=== PATIENT | female | born 1965 | race Caucasian/White ===

== ENCOUNTER → 2018-06-22 | Outpatient (CLI) | payer OTHER ==
[~2018-06-22] MED LIST: CALC300T5 PO; CHOL200024 PO; EXEM25TA2 PO; GLUC1TAB55 PO; KRIL1CAP19 PO; NAPR220C2 PO; SERT100T5 PO; UBID100C24 PO; [UNRECOGNIZED DRUG - CODE] PO
[2018-06-22 14:06] LABS: BASOPHILS # (AUTO) 0.04 x10^3/uL (0-0.1); BASOPHILS % (AUTO) 1 % (0-1); EOSINOPHILS # (AUTO) 0.08 x10^3/uL (0-0.4); EOSINOPHILS % (AUTO) 2 % (1-7); LYMPHOCYTES # (AUTO) 1.59 x10^3/uL (1-3.4); LYMPHOCYTES % (AUTO) 36 % (22-44); MD NO; MEAN CORPUSCULAR HEMOGLOBIN 30.2 pg (27.0-34.8); MEAN CORPUSCULAR HGB CONC 33.7 g/dL (32.4-35.8); MEAN CORPUSCULAR VOLUME 89.6 fL (80-100); MEAN PLATELET VOLUME 7.5 fL (7.4-10.4); MONOCYTES # (AUTO) 0.28 x10^3/uL (0.2-0.8); MONOCYTES % (AUTO) 6 % (2-9); NEUTROPHILS % (AUTO) 55 % (42-75); PLATELET COUNT 331 x10^3/uL (130-400); RED BLOOD COUNT 4.63 x10^6/uL (3.82-5.3); RED CELL DISTRIBUTION WIDTH 14.1 % (9.6-15.2)
[2018-06-22 14:11] LABS: INTERNATIONAL NORMALIZED RATIO 1.03 (0.93-1.1); PROTHROMBIN TIME 10.6 Seconds (9.6-11.5)
[2018-06-22 14:13] LABS: ALANINE AMINOTRANSFERASE 28 U/L (12-78); ALBUMIN 4.4 g/dL (3.4-5.0); ANION GAP 9 mmol/L (5-15); CALCIUM 9.4 mg/dL (8.5-10.1); CHLORIDE 105 mmol/L (98-107); CREATININE 0.76 mg/dL (0.55-1.02)
[2018-06-22 14:15] LABS: ALKALINE PHOSPHATASE 54 U/L (45-117); BILIRUBIN,TOTAL 0.4 mg/dL (0.2-1.0); TOTAL PROTEIN 7.7 g/dL (6.4-8.2)
== END | disposition home or self-care (01) ==
LOC: STAR 13:07
PROVIDERS: ATTEND Specialist
DX: Z01.818 Encounter for other preprocedural examination (principal); N95.1 Menopausal and female climacteric states
CPT/HCPCS: 36415; 71046; 80053; 85025; 85610; 85730; 86304; 93005

== ENCOUNTER 2018-07-03 13:00 | Day surgery (SDC) | payer OTHER ==
[~2018-07-03] VITALS: Ht 160 cm; Wt 76.1 kg
[2018-07-03] MEDS ORDERED: LACTATED RINGERS 1,000 ML IV SCH (13:38)
[2018-07-03 14:11] VITALS: BP 137/83
[2018-07-03] MEDS ORDERED: HEPARIN 1,000 UNITS/ML, 10ML ONE (15:44)
[2018-07-03] MEDS ORDERED: INDOCYANINE GREEN 25 MG VIAL ONE (15:44)
[2018-07-03] MEDS ORDERED: BUPIVACAINE/PF-EPI 0.25% 1:200K ONE (15:44)
[2018-07-03] MEDS ORDERED: MIDAZOLAM 1 MG/ML, 2ML ONE (15:51)
[2018-07-03] MEDS ORDERED: FENTANYL PF 250 MCG/5ML ONE (15:51)
[2018-07-03] MEDS ORDERED: SUCCINYLCHOLINE 20 MG/ML, 10ML ONE (16:01)
[2018-07-03] MEDS ORDERED: CEFAZOLIN 1,000 MG ONE (16:01)
[2018-07-03] MEDS ORDERED: ROCURONIUM 10 MG/ML,10ML ONE (16:01)
[2018-07-03] MEDS ORDERED: ONDANSETRON 2MG/ML, 2ML ONE (16:01)
[2018-07-03] MEDS ORDERED: PROPOFOL 10 MG/ML, 50ML ONE (16:01)
[2018-07-03] MEDS ORDERED: GLYCOPYRROLATE 0.2MG/1ML, 5ML ONE (16:01)
[2018-07-03] MEDS ORDERED: PROPOFOL 10 MG/ML, 20ML ONE (16:01)
[2018-07-03] MEDS ORDERED: DEXAMETHASONE 4 MG/ML, 1ML ONE (16:01)
[2018-07-03] MEDS ORDERED: ACETAMINOPHEN 325 MG TABLET PO PRN (17:00)
[2018-07-03] MEDS ORDERED: OXYcodone 5 MG/5 ML ORAL.SOL UDC PO PRN (17:00)
[2018-07-03] MEDS ORDERED: ONDANSETRON ODT 8 MG PO PRN (17:00)
[2018-07-03] MEDS ORDERED: EPHEDRINE 50 MG/ML, 1ML IM PRN (17:00)
[2018-07-03] MEDS ORDERED: PROMETHAZINE 25 MG SUPP PR PRN (17:00)
[2018-07-03] MEDS ORDERED: ONDANSETRON 2MG/ML, 2ML IV PRN (17:00)
[2018-07-03] MEDS ORDERED: PROMETHAZINE 25 MG/ML, 1ML IV PRN (17:00)
[2018-07-03] MEDS ORDERED: LABETALOL 5MG/ML, 20ML IV PRN (17:00)
[2018-07-03] MEDS ORDERED: DIPHENHYDRAMINE 50 MG/ML, 1ML IVPush PRN (17:00)
[2018-07-03] MEDS ORDERED: MIDAZOLAM 1 MG/ML, 2ML IV PRN (17:00)
[2018-07-03] MEDS ORDERED: PROMETHAZINE 12.5 MG SUPP PR PRN (17:00)
[2018-07-03] MEDS ORDERED: MEPERIDINE/PF 25MG/0.5ML IVPush PRN (17:00)
[2018-07-03] MEDS ORDERED: MORPHINE SULFATE 4 MG/ML, 1ML IVPush PRN (17:00)
[2018-07-03] MEDS ORDERED: EPHEDRINE 50 MG/ML, 1ML IVPush PRN (17:00)
[2018-07-03] MEDS ORDERED: ACETAMINOPHEN 650 MG/20.3 ML UDC ONE (18:03)
[2018-07-03] MEDS ORDERED: OXYcodone 5 MG/5 ML ORAL.SOL UDC ONE (18:03)
[2018-07-03] MEDS ORDERED: FENTANYL PF 100 MCG/2ML ONE (18:15)
[2018-07-03] MEDS: FENTANYL PF 100 MCG/2ML IV PRN ×2 (18:15→18:30)
[2018-07-03] MEDS ORDERED: MORPHINE SULFATE 4 MG/ML, 1ML IV PRN (20:00)
[2018-07-03] MEDS ORDERED: ONDANSETRON 2MG/ML, 2ML IVPush PRN (20:00)
[2018-07-03] MEDS ORDERED: OXYcodone/APAP 7.5/325MG TABLET PO PRN (20:00)
[2018-07-03 20:28] VITALS: BP 144/94
== END 2018-07-03 21:20 | disposition home or self-care (01) ==
LOC: OUT 13:00 → 4NOR 19:20 → OUT 21:20
PROVIDERS: ATTEND Specialist
DX: D25.9 Leiomyoma of uterus, unspecified (principal); N90.818 Other female genital mutilation status; E78.00 Pure hypercholesterolemia, unspecified; Z85.3 Personal history of malignant neoplasm of breast; Z98.890 Other specified postprocedural states; Z79.899 Other long term (current) drug therapy; Z88.1 Allergy status to other antibiotic agents
CPT/HCPCS: 36415; 58552; 86850; 86900; 88307; J0330; J0690; J1100; J2250; J2405; J2704; J3010; J3490; J7120; G0378; J1644